=== PATIENT | female | born 1960 | race Caucasian/White ===

== ENCOUNTER → 2025-06-10 14:13 | Outpatient (REF) | payer OTHER, SELFPAY | LOC: RAD 14:13 | PROVIDERS: ATTENDING PHYSICIAN Ophthalmology Ophthalmic Plastic and Reconstructive Surgery; FAMILY PHYSICIAN Internal Medicine | DX: H04.412 Chronic dacryocystitis of left lacrimal passage (principal) | CPT/HCPCS: 70482; Q9967 ==